=== PATIENT | female | born 1975 | race Caucasian/White ===

== ENCOUNTER 2019-07-16 15:32 | Emergency (ER) | payer OTHER, SELFPAY ==
--- NOTE | ~2019-07-16 | XR_ITS ---
EXAMINATION: XR chest 1V portable EXAM DATE: 07/16/2019 16:02 INDICATION: Shortness of air TECHNIQUE: Portable AP frontal chest x-ray was obtained. There is no prior study for comparison. FINDINGS: The lungs are clear. There are no pleural effusions. The cardiomediastinal silhouette is within normal limits. There is no pneumothorax suspected. The bones and soft tissues are unremarkab le. IMPRESSION: No acute cardiopulmonary findings. Reviewed, dictated and finalized at location A.
--- NOTE | 2019-07-16 15:32 | PC.NURSE ---
Pt friend Jazmin wanting to leave information if pt needs anything, she can be contacted at [phone]
[2019-07-16 15:41] VITALS: BP 165/110; PULSE 95; RESP 17; O2SAT 100
[2019-07-16 15:46] VITALS: PULSE 94
[2019-07-16 16:05] VITALS: BP 158/91; PULSE 84; RESP 13; TEMP 37.3; O2SAT 100
--- NOTE | 2019-07-16 16:05 | ED.SOB ---
HPI - SOB/Dyspnea General Chief Complaint: Shortness of Breath/Dyspnea Stated Complaint: SOB covid Time Seen by Provider: 07/16/19 15:34 History of Present Illness HPI Narrative: Patient is a 44-year-old female who presents the ER with shortness of breath. Patient tested positive for COVID yesterday. Her mother is also positive. Symptom onset was 07/02/2019. 2 weeks ago patient has been having intermittent fever. She is also had frontal headache without radiation. Has been taking tylenol for symptoms. Patient reports today she became more short of breath as she developed a fever and that her symptoms persisted which was atypical. She did use a family members albuterol with no real change. Patient reports decreased smell and taste for 9 days. Related Data Allergies Allergy/AdvReac Type Severity Reaction Status Date / Time No Known Allergies Allergy Verified 07/16/19 16:04 Review of Systems Review of Systems: All systems reviewed & are unremarkable except as noted in HPI and below Constitutional: Constitutional: Reports chills, Reports fatigue and Reports fever(s) ENT: Denies nasal congestion and Denies sore throat Respiratory: Respiratory: Denies chest congestion, Reports cough, Reports dyspnea and Denies wheezing Gastrointestinal: Gastrointestinal: Denies abdominal pain, Denies nausea and Denies vomiting Neurologic: Denies dizziness, Reports headache(s) and Denies numbness PMFSH Past Medical History Medical History (Updated 07/16/19 @ 17:14 by Trung Goyal MD) No pertinent past medical history Surgical History Surgical History (Updated 07/16/19 @ 16:18 by Trung Goyal MD) H/O abdominoplasty Social History Social History (Updated 07/16/19 @ 16:18 by Trung Goyal MD) Smoking status: Never smoker Gender identity (if verbalized by the patient): Female Exam Narrative: Exam Narrative: GENERAL: Well-appearing, well-nourished, and in no acute distress. HEAD: Normocephalic, atraumatic. CHEST: Clear to auscultation. No respiratory distress. HEART: Regular rate and rhythm. Normal peripheral pulses. ABDOMEN: Soft, nontender, nondistended. EXTREMITIES: Normal range of motion. No edema. SKIN: Warm, dry, no rash. NEURO: Alert and oriented x3. PSYCH: Normal mood and affect. Course Course Emergency Course: Patient resting comfortably and informed of results. Blood pressure normalized without intervention. Patient said jumping jacks without hypoxia while in the room. I have given patient return precautions but will also prescribe azithromycin and albuterol for outpatient treatment. She should follow-up with her PCP. She has been instructed to continue her self quarantine until cleared by her primary care provider. Vital Signs Vital signs: Vital Signs Pulse Rate 95 07/16/19 15:41 Respiratory Rate 17 07/16/19 15:41 Blood Pressure 165/110 H 07/16/19 15:41 Pulse Oximetry 100 07/16/19 15:41 Temperature 99.2 F 07/16/19 16:05 Pulse Rate 89 07/16/19 16:45 Respiratory Rate 13 07/16/19 16:45 Blood Pressure 130/87 07/16/19 16:45 Pulse Oximetry 97 07/16/19 16:45 MDM - SOB/Dyspnea Lab Data Result diagrams: 07/16/19 16:07 07/16/19 16:08 Labs: Lab Results 07/16/19 07/16/19 07/16/19 Range/Units 16:07 16:07 16:07 WBC 7.5 (4.5-10.0) K/mm3 RBC 4.33 (4.2-5.4) M/mm3 Hgb 12.7 (12.0-15.0) g/dL Hct 37.8 (37.0-47.0) % MCV 87.3 (80-100) fl MCH 29.3 (26-34) pg MCHC 33.6 (32-36) g/dl RDW 12.6 (11.5-14.5) % Plt Count 223 (150-375) k/mm3 MPV 12.3 H (7.4-10.4) fl Immature Gran % (Auto) 0.3 (0-0.5) % Neut % (Auto) 58.4 (45.5-73.1) % Lymph % (Auto) 33.7 (18.3-44.2) % [place] % (Auto) 6.5 (2.6-8.5) % Eos % (Auto) 0.4 (0-4.4) % Baso % (Auto) 0.7 (0.2-1.2) % Lymph # (Auto) 2.53 (0.9-3.2) K/mm3 [place] # (Auto) 0.5 (0.1-0.6) K/mm3 Eos # (Auto) 0.0 (0-0.3)
[2019-07-16 16:14] LABS: Basophils Absolute Auto 0.1 K/mm3 (0.0-0.1); Basophils Percent Auto 0.7 % (0.2-1.2); Eosinophils Percent Auto 0.4 % (0-4.4); Hematocrit 37.8 % (37.0-47.0); Hemoglobin 12.7 g/dL (12.0-15.0); Immature Granulocyte Absolute 0.02 K/mm3 (0.00-0.031); Immature Granulocyte Percent A 0.3 % (0-0.5); Lymphocytes Absolute Auto 2.53 K/mm3 (0.9-3.2); Lymphocytes Percent Auto 33.7 % (18.3-44.2); Mean Corpuscular HGB Conc 33.6 g/dl (32-36); Mean Corpuscular Hemoglobin 29.3 pg (26-34); Mean Corpuscular Volume 87.3 fl (80-100); Mean Platelet Volume 12.3 fl (7.4-10.4); Monocytes Absolute Auto 0.5 K/mm3 (0.1-0.6); Monocytes Percent Auto 6.5 % (2.6-8.5); Neutrophils Absolute Auto 4.4 K/mm3 (1.3-6.7); Neutrophils Percent Auto 58.4 % (45.5-73.1); Platelet Count Result 223 k/mm3 (150-375); Red Blood Count 4.33 M/mm3 (4.2-5.4); Red Cell Distribution Width 12.6 % (11.5-14.5); White Blood Count 7.5 K/mm3 (4.5-10.0)
[2019-07-16 16:26] LABS: Alanine Aminotransferase 21 U/L (4-35); Albumin Level 4.5 g/dL (3.5-5.1); Alkaline Phosphatase 47 U/L (38-126); Aspartate Amino Transferase 28 U/L (14-36); Bilirubin,Total 0.2 mg/dL (0.2-1.3); Blood Urea Nitrogen 13 mg/dL (7-17); Calcium 9.1 mg/dL (8.4-10.2); Carbon Dioxide 22 mmol/L (22-30); Chloride 105 mmol/L (98-107); Estimated Glomerular Filt Rate > 60; Glucose 111 mg/dL (65-105); Potassium 3.1 mmol/L (3.4-5.0); Sodium 137 mmol/L (137-145)
[2019-07-16 16:31] LABS: CRP < 0.5 mg/dL (<1.0)
[2019-07-16 16:33] LABS: D Dimer 0.27 ug/mL (<0.48)
[2019-07-16 16:45] VITALS: BP 130/87; PULSE 89; RESP 13; O2SAT 97
--- NOTE | 2019-07-16 16:46 | PC.NURSE ---
Pt 97% and jogged in place per EDP VORB, no drop in pts O2 sat. When finished, O2 sat 100% on room air.
[2019-07-16 17:39] VITALS: BP 143/98; PULSE 77; RESP 14; O2SAT 98
== END 2019-07-16 17:40 | disposition home or self-care (01) ==
PROVIDERS: Emergency Provider Emergency Medicine; PCP Physician Assistant
DX: R06.00 Dyspnea, unspecified (principal); B97.29 Other coronavirus as the cause of diseases classified elsewhere
CPT/HCPCS: 36415; 71045; 80053; 83605; 85025; 85380; 86140; 99283

== ENCOUNTER 2019-08-06 13:34 | Outpatient (CLI) | payer OTHER, SELFPAY ==
--- NOTE | ~2019-08-06 | MR_ITS ---
EXAMINATION: MR brain/brain stem wo/w con DATE: 08/06/2019 15:42 INDICATION: Meningeal signs with disease caused COVID19 TECHNIQUE: Magnetic resonance imaging (MRI) of the brain and brainstem was performed without and with 18 mL Multihance intravenous contrast. Sequences included sagittal and axial T1-weighted SE, axial d iffusion-weighted FS SE, axial T2*-weighted GRE, axial T2-weighted FLAIR, and axial T2-weighted FSE. Postcontrast axial and coronal T1-weighted SE was obtained. Apparent diffusion coefficient (ADC) maps were created. COMPARISON: None. FINDINGS: There are no areas of restricted diffusion to suggest acute infarction. No intracranial hemorrhage or abnormal intracranial mass lesion. There are no intraparenchymal signal abnormalities seen on the ot her pulse sequences. The ventricles are symmetric and normal in size. There are no abnormal extra-axi al fluid collections. Flow voids are seen in the cerebral arteries on the T2-weighted sequences consi stent with their expected patency. Visualized orbits and soft tissues are unremarkable. There are no areas of abnormal enhancement on the post contrast images. IMPRESSION: 1. Normal brain MRI. Reviewed, dictated and finalized at location A. IMPRESSION: 1. Normal brain MRI.
[2019-08-06 15:16] LABS: Estimated Glomerular Filt Rate > 60
== END 2019-08-06 13:35 | disposition home or self-care (01) ==
PROVIDERS: PCP Physician Assistant; Visit Provider Physician Assistant
DX: U07.1 COVID-19 (principal); R51 Headache
CPT/HCPCS: 36415; 70553; A9577

== ENCOUNTER → 2020-07-30 12:26 | Outpatient (CLI) | payer OTHER, SELFPAY ==
--- NOTE | ~2020-07-30 | MM_ITS ---
EXAMINATION: MM screening [place] [facility] w [facility] HISTORY: Screening TECHNIQUE: Craniocaudal and mediolateral oblique 3-D tomosynthesis images were obtained and synthetic 2-D images were generated. CAD analysis was submitted and interpreted. COMPARISON: No prior mammogram is available for comparison at this institution. BREAST PARENCHYMAL COMPOSITION: The breasts are extremely dense, which lowers the sensitivity of mamm ography FINDINGS: There is no evidence of suspicious mass, calcification, or architectural distortion to sugg est malignancy in either breast. There has been no suspicious interval change. IMPRESSION: 1. No mammographic evidence of malignancy. 2. Recommend routine screening mammography in one year. BI-RADS Category 1: Negative Reviewed, dictated and finalized at location A.
== END ==
PROVIDERS: PCP Physician Assistant; Visit Provider Physician Assistant
DX: Z12.31 Encounter for screening mammogram for malignant neoplasm of breast (principal)
CPT/HCPCS: 77063; 77067

== ENCOUNTER 2023-01-30 02:02 | Day surgery (SDC) | payer OTHER, SELFPAY ==
[2023-01-20 14:15] VITALS: BMI 30.9
--- NOTE | 2023-01-20 14:24 | PC.NURSE ---
Report to the Outpatient Waiting Room, entrance under the green pavilion located off [facility], at time _0700_ on date _[id number]_. Planned Procedure Time: _0900_. Time changes happen often and if your time is changed the preop area will call you the afternoon before. - You and your visitor will be asked to self-screen and do not enter if you have any COVID symptoms. - A mask is optional within the hospital at this time. Patients may have clear liquids (water, carbonated beverages, clear teas, apple juice) until 3 hours prior to surgery with a maximum of 20 ounces. - No food from midnight until time of surgery Take the following medications with a SIP of water the morning of surgery: None DO NOT STOP ANY OF YOUR OTHER PRESCRIPTION MEDICATIONS PRIOR TO SURGERY ?EXCEPT THE FOLLOWING Medications to discontinue per physician ___Stop Semaglutide now till after surgery. Multivitamin Date to take last eulv___[id number] Please no make-up, nail moldovan, hairspray, perfume, deodorant, or body powder the day of surgery. No jewelry (including any body piercings) or valuables the day of surgery, leave them at home. Please take a shower or bath the night before, or the morning of, surgery with an antibacterial soap. Wear comfortable, loose fitting clothing. - Jewelry must be removed prior to entering the operating room. Rings and piercings that are not removed may be cut off. - The hospital will not accept responsibility for valuables. - Please leave all valuables, including medications, at home the day of surgery. If you are going home after surgery, a licensed bicycle taxi driver must drive you home. - NO public transportation without another adult if you receive anesthesia. - We recommend that an adult stay with you for 24 hours following discharge. - We also recommend that you do not drive, make important decision, drink alcoholic beverages, or take any drugs that were not prescribed by your health care provider for at least 24 hours after your discharge time. Follow any additional instructions given to you from your surgeon. If you or anyone in your household have experienced Covid symptoms in the past week, please notify your surgeon or the nurse liaison at the phone number below for possible testing. Telephone instructions given to __Patient___and asked if any additional questions and then verbalized understanding. Patient advised to call surgeon office or pre surgery nurse liaison [phone] if any additional questions.
--- NOTE | 2023-01-29 10:55 | PM.IMHP ---
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 She reports her cycles are regular, heavy on day 2 but then fizzles out. She is not currently sexually active; in 2014. No pelvic pain. No vaginal issues. Had normal blood work recently. On exam, she was found to have a 2cm delivering polyp vs fibroid (firm on palpation) but unable to tell where the stalk originated from. SCRAPER OPERATOR US was ordered and was noraml. Review of Systems Constitutional: Constitutional: Denies chills, Denies fever(s) and Denies headache(s) Eyes: Eyes: Denies change in vision ENT: Denies dizziness and Denies headache(s) Cardiovascular: Cardiovascular: Denies chest pain and Denies dyspnea Respiratory: Respiratory: Denies cough and Denies dyspnea Gastrointestinal: Gastrointestinal: Denies abdominal pain and Denies change in stool character Genitourinary: Genitourinary: Denies abnormal menses, Reports abnormal vaginal bleeding, Reports menorrhagia, Denies pelvic pain, Denies vaginal discharge, Denies vaginal odor and Denies vaginal pruritus Neurologic: Denies dizziness and Denies headache(s) Psychiatric: Psychiatric: Denies anxiety and Denies depression PMFSH Past Medical History Medical History No pertinent past medical history Surgical History Surgical History H/O abdominoplasty Family History Family History Father Hypertension Mother Hypertension Grandparent Heart disease Social History Social History Smoking status: Never smoker Alcohol intake: current Drinks per week: 4 Substance use: never Substance use type: does not use Lack of Transportation: No Lack of Food: Never True Current Housing: I Have Housing Concerned About Future Housing: No Difficulty Paying Gas/Electric Bills: No Difficulty Paying for Meds: No Currently Unemployed: No Education: Associate Degree Living arrangements: with family Occupation/Education: occupation Gender identity (if verbalized by the patient): Female Sexual Orientation (if Verbalized by the Patient): Straight or Heterosexual Spiritual care concerns: No Meds Home Medications and Allergies Home Medications Medication Instructions Recorded Confirmed Type semaglutide 0.25 mg or 0.5 mg (2 0.25 mg subcut WEEKLY 10/03/22 01/20/23 History mg/3 mL) subcutaneous pen injector (Ozempic) multivitamin 1 tablet PO DAILY 01/20/23 01/20/23 History Allergies Allergy/AdvReac Type Severity Reaction Status Date / Time No Known Allergies Allergy Verified 01/20/23 14:15 Exam Const: General: cooperative, comfortable, no acute distress and obese Orientation/consciousness: patient oriented x3 Resp: Effort & Inspection: normal respiratory effort Cardio: Rate: regular rate GI: Inspection: normal to inspection GI Palp: No abdominal tenderness and Yes Soft to palpation : Other: deferred to OR Skin: General skin exam: normal color Neuro: General: patient oriented x3 Extrem: General: normal to inspection Psych: Appearance: grossly normal Affect: normal affect Attitude: cooperative Assessment and Plan Assessment and plan (1) Abnormal uterine bleeding (AUB): Code(s): N93.9 - Abnormal uterine and vaginal bleeding, unspecified Status: Acute (2) Endocervical polyp: Code(s): N84.1 - Polyp of cervix uteri Status: Acute Plan - appears to be a large endocervical polyp - Proceed with Hysteroscopy, D&C with polypectomy - Risks and benefits discussed in detail and all questions answered
--- NOTE | 2023-01-30 07:16 | WPDHPUPDATE1 ---
History and Physical Update Update Date/Time: 01/30/23 07:16 History and Physical has been reviewed, including an updated exam of the patient. There are NO changes in the patient's condition. Risks, benefits, and alternatives have been discussed and questions answered. Patient agrees to proceed with Hysteroscopy, D&C with polypectomy.
[2023-01-30 07:21] VITALS: BP 148/95; PULSE 84; RESP 18; TEMP 37.1; O2SAT 99
[2023-01-30] MEDS: ACETAMINOPHEN 500 MG TABLET 1000 MG PO (07:46)
[2023-01-30] MEDS: LACTATED RINGERS 1,000 ML 30 ML IV CONT (07:55)
--- NOTE | 2023-01-30 09:04 | WPDANESEPPF ---
Anes - Initial Pre Proc Eval Procedure: Operation Date: 01/30/23 09:00 Proposed Procedures p Hysteroscopy Dilation and Curettage with Polypectomy - Yary Acharya MD Date/Time: 01/30/23 09:04 Surgeon: Yary Acharya MD Pre Op Diagnosis: Cervical Polyp Patient Data Age: 47 Gender: F Height: 1.78 m Weight: 95.3 kg Last Vital Signs Temp 98.7 F 01/30/23 07:21 Pulse 84 01/30/23 07:21 Resp 18 01/30/23 07:21 BP 148/95 H 01/30/23 07:21 Pulse Ox 99 01/30/23 07:21 O2 Del Method Room Air 01/30/23 07:21 Allergies Allergy/AdvReac Type Severity Reaction Status Date / Time No Known Allergies Allergy Verified 01/30/23 08:11 Home Medications Medication Instructions Recorded Confirmed Type semaglutide 0.25 mg or 0.5 mg (2 0.25 mg subcut WEEKLY 10/03/22 01/20/23 History mg/3 mL) subcutaneous pen injector (Ozempic) multivitamin 1 tablet PO DAILY 01/20/23 01/20/23 History acetaminophen 500 mg tablet 1,000 mg PO TID #60 tabs 01/30/23 Rx ibuprofen 800 mg tablet 800 mg PO TID #30 tabs 01/30/23 Rx Patient hx anesthesia problems: none Family hx anesthesia problems: none Results Review: All pre-operative results and documents have been reviewed as part of the pre-operative evaluation. [facility] Past Medical History Medical History No pertinent past medical history Surgical History Surgical History H/O abdominoplasty Family History Family History Father Hypertension Mother Hypertension Grandparent Heart disease Social History Social History Smoking status: Never smoker Alcohol intake: current Drinks per week: 4 Substance use: never Substance use type: does not use Lack of Transportation: No Lack of Food: Never True Current Housing: I Have Housing Concerned About Future Housing: No Difficulty Paying Gas/Electric Bills: No Difficulty Paying for Meds: No Currently Unemployed: No Education: Associate Degree Living arrangements: with family Occupation/Education: occupation Gender identity (if verbalized by the patient): Female Sexual Orientation (if Verbalized by the Patient): Straight or Heterosexual Spiritual care concerns: No Anes - Eval Final PreProcedure Day of Procedure 01/30/23 09:04 Patient weight: obese Heart: regular rate and rhythm Lungs: clear to auscultation Airway: Mallampati scale class II Neurological: alert and oriented Last oral intake: >/= 8 hours ASA classification: II Emergent: no Anesthetic plan: proceed Anesthesia type and monitoring: general GIVS and standard monitoring Results Review: All pre-operative results and documents have been reviewed as part of the pre-operative evaluation. Informed Consent: The patient's anesthetic plan and its attendant risks and benefits were discussed with the patient/family/POA. Questions were solicited and answers provided to the satisfaction of the patient/family/POA.
[2023-01-30] MEDS: KETOROLAC 30 MG/ML VIAL (*BKC) IV PUSH (09:25)
--- NOTE | 2023-01-30 09:41 | W.PM.PROC2 ---
Procedure Note - Detailed Date of Procedure 01/30/23 Pre-op Diagnosis Cervical Polyp, AUB Post-op Diagnosis Same Procedure Performed Hysteroscopy, D&C, polypectomy Surgeon Yary Acharya MD Anesthesia MAC Findings Endocervical polyp noted and removed (likely nabothian cyst), Normal uterus with diffusely thickened endometrium; bilateral tubal ostia visualized. Good hemostasis at end of case. Description of Procedure Sarah was taken to the operating room where she was placed under sedation without complications. She was then prepped and draped in the usual sterile fashion in the dorsal lithotomy position with her legs in low Steven stirrups. A time-out was performed and no perioperative antibiotics were indicated. A bivalve speculum was placed within the vagina where the cervix was easily identified. The anterior lip of the cervix was grasped with a single-tooth tenaculum. The hysteroscope was advanced into the uterine cavity with the above findings noted. Using polyp forceps the polyp was removed without complications. A curettage was then performed until a good uterine cry was felt throughout the uterus, a significant amount of tissue was removed. Good hemostasis was noted. All instruments were removed from the vagina. Sponge, lap, instrument, and needle counts were correct at the end of the procedure. Patient was awoken from anesthesia and taken to recovery with plans of same-day discharge home. Estimated Blood Loss 5 IV Fluids 700 (Fluid deficit: 70cc) Pathology Yes (endocervical polyp and endometrial curettings) Complications No immediate complications Condition Stable Disposition Same day [facility] Billing Surgery - Charge Forward: Surgery Billing
[2023-01-30 09:45] VITALS: BP 93/39; PULSE 82; RESP 16; O2SAT 97
[2023-01-30 10:15] VITALS: BP 99/63; PULSE 70; RESP 20
[2023-01-30 10:38] VITALS: BP 132/80; PULSE 70; RESP 20
== END 2023-01-30 10:40 | disposition home or self-care (01) ==
PROVIDERS: PCP Physician Assistant; Visit Provider Obstetrics & Gynecology
PROC: 0U5B8ZZ Destruction of Endometrium, Via Natural or Artificial Opening Endoscopic (ICD-10-PCS; CPT 58563; principal; 2023-01-30 09:00)
DX: N93.9 Abnormal uterine and vaginal bleeding, unspecified (principal); N84.1 Polyp of cervix uteri; Z79.85 Long-term (current) use of injectable non-insulin antidiabetic drugs; E66.9 Obesity, unspecified; Z68.30 Body mass index [BMI] 30.0-30.9, adult
CPT/HCPCS: 58558; 88305; A9270; J1885; J2250; J2704; J3010; J7120

== ENCOUNTER → 2023-06-12 10:21 | Outpatient (CLI) | payer OTHER, SELFPAY ==
--- NOTE | ~2023-06-12 | MM_ITS ---
EXAMINATION: MM screening [place] [facility] w [facility] HISTORY: Screening TECHNIQUE: Craniocaudal and mediolateral oblique 3-D tomosynthesis images were obtained and synthetic 2-D images were generated. CAD analysis was submitted and interpreted. COMPARISON: 07/30/2020 BREAST PARENCHYMAL COMPOSITION: The breasts are heterogeneously dense, which may obscure small masses . FINDINGS: There is no evidence of suspicious mass, calcification, or architectural distortion to sugg est malignancy in either breast. There has been no suspicious interval change. IMPRESSION: 1. No mammographic evidence of malignancy. 2. Recommend routine screening mammography in one year. BI-RADS Category 1: Negative Reviewed, dictated and finalized at location A. UDMAN
== END ==
PROVIDERS: PCP Physician Assistant; Visit Provider Physician Assistant
DX: Z12.31 Encounter for screening mammogram for malignant neoplasm of breast (principal)
CPT/HCPCS: 77063; 77067

== ENCOUNTER 2024-12-23 02:31 | Day surgery (SDC) | payer BC, SELFPAY ==
[2024-12-12 08:31] VITALS: BMI 28.7
--- OUTSIDE RECORDS SUMMARY | 2024-12-23 02:34 | XMS_ITS | Clinical Summary ---
Author Organization [facility] Address [address] [place] [address] Care Team Providers Care Aerial Photographer Name Role Phone Unavailable Primary Care Provider Unavailabl e Source Comments [facility],non-owned Affiliates and Associated Physician Practices is amultiple site organization consisting of ambulatory clinics and hospital sitesin [place], [place], [place] and [place]. This disclosure is being madepursuant to the Care Everywhere program and may not contain all information available regarding this patient. Last updated 18.[facility] Allergies No known active allergies Medications * Be aware that medications may not be up to date on this document. Alwaysverify current medications with the patient. diclofenac sodium EC (VOLTAREN) 75 MG tablet Take 75 mg by mouth as needed 03/05/2018 Active Family History Medical History Relation Name Comments Cancer Maternal Grandfather skin Relation Name Status Comments Maternal Grandfather Social History Tobacco Use Types Packs/Day Years Used Date Smoking Tobacco: Never Smokeless Tobacco: Never Alcohol Use Standard Drinks/Week Comments Yes 0 (1 standard drink = 0.6 oz pur e alcohol) Comments No Sex and Gender Information Value Date Recorded Sex Assigned at Not on file Legal Sex Female 6:27 AM TILER Gender Identity Not on file Sexual Orientation Not on file 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 Not on file Not on file Last Filed Vital Signs Vital Sign Reading Time Taken Comments Blood Pressure 124/84 05/21/2018 1:36 PM TILER Pulse - - Temperature - - Respiratory Rate - - Oxygen Saturation - - Inhaled Oxygen Concentration - - Weight 92.1 kg (203 lb) 05/21/2018 1:36 PM TILER Height 177.8 cm (5' 10) 05/21/2018 1:36 PM TILER Body Mass Index 29.13 05/21/2018 1:36 PM TILER Plan of Treatment Health Maintenance Due Date Last Done Comments COLOGUARD (AGES 45-75) - COL ON CA SCREENING 1977 COLON MONITORING 1977 COLONOSCOPY - COLON CA SCREENING 1977 CT COLONOGRAPHY - COLON CA SCREENING 1977 Colorectal Cancer Screening 1977 FIT - COLON CA SCREENING 1977 FLEX SIG - COLON CA SCREENING 1977 LIPID TESTING 1977 MAMMOGRAM 1977 HIV SCREENING 1992 HEPATITIS C SCREENING 06/01/1995 DTAP/TDAP/TD VACCINES (1 - Tdap) 1996 HEPATITIS B VACCINE (1 of 3 - 19+ 3-dose series) 1996 SCREENING FOR DIABETES 05/21/2018 PAP with HPV 05/21/2023 05/21/2018 DEPRESSION SCREENING 04/17/2024 COVID-19 VACCINE (1 - 2023-2 5 season) 2024 INFLUENZA VACCINE (#1) 2024 ZOSTER VACCINE (1 of 2) 2027 HIB VACCINE Aged Out No longer eligi ble based on patient's age to complete this topic HPV VACCINE Aged Out No longer eligi ble based on patient's age to complete this topic MENINGOCOCCAL (Group B) VACC INE SHARED DECISION-MAKING Aged Out No longer eligibl e based on patient's age to complete this topic MENINGOCOCCAL GROUPS A/C/Y/W VACCINE Aged Out No longer eligible b ased on patient's age to complete this topic PNEUMOCOCCAL VACCINE Aged Out No long er eligible based on patient's age to complete this topic Procedures Procedure Name Priority Date/Time Associated Diagnosis Comments HPV DETECTION HIGH RISK LUISITO Routine 05/21/2018 2:03 PM TILER Encounter for annual routine gynecological examination from Last 3 Months or Most Recently Relevant to Health Maintenance Results * HPV DETECTION HIGH RISK LUISITO (05/21/2018 2:03 PM TILER) High Risk Human Papilloma Result Not Detected Not Detected 05/25/2018 1:38 PM TILER [facility] High Risk Human Papilloma Interp 05/25/2018 1:38 PM TILER [facility] Comment:High Risk Human Michele lloma Virus was Not Detected. Pathology/Cytolo gy PART OF UTERINE CERVIX / Unknown 05/21/2018 2:03 PM TILER 05/22/2018 1:32 PM TILER Narrative [facility] - 05/25/2018 1:38 PM TILER Nucleic acid isolated from the specimen was analyzed with a nucleic acid amplification test (FDA approved Gen-Probe HPV Assay) to detect high risk human papilloma virus (Types: 16, 18, 31, 33, 35, 39, 45, 51, 52, 56, 58, 59, 66, and 68). The reference range is Not Detected. Comment: These test results should not be used as the sole basis for clinical assessment and treatment of patients. These results should always be correlated with other available data (cytology, histology, and clinical information). Jaclyn Correa MD LAB - MICROBIOLOGY ORDERABLES F inal Result [facility] [address] [phone] from Last 3 Months or Most Recently Relevant to Health Maintenance Insurance [facility] Member Subscriber Plan / Payer (Ef fective 2017-Present) Name:Juan Tesfaye Relation to Subscriber:Self Name:JUAN TESFAYE Payer ID:[id number] (NAIC) Type:SalesFloor.itO Address: [address] [place] [id number] [facility]
[2024-12-23 06:52] VITALS: BP 143/95; PULSE 82; RESP 16; TEMP 36.1; O2SAT 99; BMI 29.6
--- NOTE | 2024-12-23 06:52 | WPDANESEPPF ---
Anes - Initial Pre Proc Eval Procedure: Operation Date: 12/23/24 08:00 Proposed Procedures p Screening Colonoscopy - Danial Boucher MD Date/Time: 12/23/24 06:52 Surgeon: Danial Boucher MD Pre Op Diagnosis: Screening Patient Data Age: 49 Gender: F Height: 1.78 m Weight: 90.8 kg Allergies Allergy/AdvReac Type Severity Reaction Status Date / Time No Known Allergies Allergy Verified 12/23/24 06:51 Home Medications ?Medication ?Instructions ?Recorded ?Confirmed ?Type multivitamin 1 tablet PO DAILY 01/20/23 12/23/24 History Lactobacillus acidophilus 10 100 mmu cells PO DAILY 12/12/24 12/23/24 History billion cell capsule (Probiotic) cholecalciferol (vitamin D3) 50 50 mcg PO DAILY 12/12/24 12/23/24 History mcg (2,000 unit) capsule (D3-2000) Patient hx anesthesia problems: none Family hx anesthesia problems: none Results Review: All pre-operative results and documents have been reviewed as part of the pre-operative evaluation. [facility] Past Medical History Medical History No pertinent past medical history Surgical History Surgical History History of gynecologic surgery (01/30/23) 01/30/2023 Hysteroscopy, D&C, polypectomy H/O abdominoplasty Family History Family History Father Hypertension Mother Hypertension Grandparent Heart disease Social History Social History (Updated 11/25/24 @ 14:18 by Floyd García MA) Smoking status: Never smoker Alcohol intake: current Drinks per week: 2 Alcohol use details: socially Substance use: never Substance use type: does not use Do You Feel Safe in your Home?: Yes Lack of Transportation: No Lack of Food: Never True Current Housing: I Have Housing Concerned About Future Housing: No Difficulty Paying Gas/Electric Bills: No Difficulty Paying for Meds: No Currently Unemployed: No Education: Master's Degree or Higher Difficulty w/ Childcare or Family Care: No Living arrangements: with family 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 Gender identity (if verbalized by the patient): Female Sexual Orientation (if Verbalized by the Patient): Straight or Heterosexual Spiritual care concerns: No Anes - Eval Final PreProcedure Day of Procedure 12/23/24 06:52 Patient weight: overweight Heart: regular rate and rhythm Lungs: clear to auscultation Airway: Mallampati scale class II Neurological: alert and oriented Last oral intake: >/= 8 hours ASA classification: II Emergent: no Anesthetic plan: proceed Anesthesia type and monitoring: general GIVS and standard monitoring Results Review: All pre-operative results and documents have been reviewed as part of the pre-operative evaluation. Informed Consent: The patient's anesthetic plan and its attendant risks and benefits were discussed with the patient/family/POA. Questions were solicited and answers provided to the satisfaction of the patient/family/POA.
[2024-12-23 06:56] LABS: BEDSIDEPREGUCG Negative (Negative)
[2024-12-23] MEDS: LACTATED RINGERS 1,000 ML 150 ML IV CONT (06:58)
--- NOTE | 2024-12-23 07:54 | PM.HPGS ---
History of Present Illness History of Present Illness Consent: Risks, benefits, and alternatives have been discussed and questions answered. Patient agrees to proceed with procedure. Chief complaint: Screening Narrative: Sarah Rivas is a 49 year old female here for first screening colonoscopy Review of Systems Review of Systems: All systems reviewed & are unremarkable except as noted in HPI and below PMFSH Past Medical History Medical History (Updated 12/23/24 @ 07:54 by Danial Boucher MD) Colon cancer screening No pertinent past medical history Surgical History Surgical History History of gynecologic surgery (01/30/23) 01/30/2023 Hysteroscopy, D&C, polypectomy H/O abdominoplasty Family History Family History Father Hypertension Mother Hypertension Grandparent Heart disease Social History Social History (Updated 11/25/24 @ 14:18 by Floyd García MA) Smoking status: Never smoker Alcohol intake: current Drinks per week: 2 Alcohol use details: socially Substance use: never Substance use type: does not use Do You Feel Safe in your Home?: Yes Lack of Transportation: No Lack of Food: Never True Current Housing: I Have Housing Concerned About Future Housing: No Difficulty Paying Gas/Electric Bills: No Difficulty Paying for Meds: No Currently Unemployed: No Education: Master's Degree or Higher Difficulty w/ Childcare or Family Care: No Living arrangements: with family 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 Gender identity (if verbalized by the patient): Female Sexual Orientation (if Verbalized by the Patient): Straight or Heterosexual Spiritual care concerns: No Meds Home Medications and Allergies Home Medications ?Medication ?Instructions ?Recorded ?Confirmed ?Type multivitamin 1 tablet PO DAILY 01/20/23 12/23/24 History Lactobacillus acidophilus 10 100 mmu cells PO DAILY 12/12/24 12/23/24 History billion cell capsule (Probiotic) cholecalciferol (vitamin D3) 50 50 mcg PO DAILY 12/12/24 12/23/24 History mcg (2,000 unit) capsule (D3-2000) Allergies Allergy/AdvReac Type Severity Reaction Status Date / Time No Known Allergies Allergy Verified 12/23/24 06:51 Vital Signs Vital Signs - 24 hr 12/23/24 06:52 Temperature 97.0 F L Pulse Rate 82 Respiratory Rate 16 Blood Pressure 143/95 H Pulse Oximetry 99 Oxygen Delivery Room Air Exam Const: General: comfortable and no acute distress HENMT: Face/Nose/Sinus: Normal nares present Eyes: General: appearance normal, both eyes and all related structures Neck: Neck: no JVD Resp: Auscultation: clear to auscultation bilaterally Cardio: Rate: regular rate Rhythm: regular rhythm GI: Inspection: non-distended GI Palp: Yes Soft to palpation Skin: General skin exam: normal color Neuro: General: gait normal Speech: normal speech Extrem: General: normal to inspection Psych: Mental Status: mental status grossly normal Assessment and Plan Assessment and plan (1) Colon cancer screening: Code(s): Z12.11 - Encounter for screening for malignant neoplasm of colon Status: Acute Assessment and Plan: colonoscopy
[2024-12-23 08:10] VITALS: BP 109/78; PULSE 69; RESP 20; O2SAT 98
[2024-12-23 08:20] VITALS: BP 110/75; PULSE 67; RESP 15; O2SAT 98
[2024-12-23 08:30] VITALS: BP 120/81; PULSE 68; RESP 20; O2SAT 99
== END 2024-12-23 08:39 | disposition home or self-care (01) ==
PROVIDERS: Anesthesiology; PCP Physician Assistant; Referring Provider Physician Assistant; Visit Provider Internal Medicine Gastroenterology
PROC: 0DJD8ZZ Inspection of Lower Intestinal Tract, Via Natural or Artificial Opening Endoscopic (ICD-10-PCS; CPT 45378; principal; 2024-12-23 08:00)
DX: Z12.11 Encounter for screening for malignant neoplasm of colon (principal)
CPT/HCPCS: 45378; J2003; J2704; J7120